=== PATIENT | male | born 1950 | race Caucasian/White ===

== ENCOUNTER 2016-11-22 10:18 | Emergency (ER) | payer MEDICARE, BC ==
[~2016-11-22] VITALS: Ht 170.2 cm; Wt 82.0 kg
[2016-11-22 10:23] VITALS: BP 177/92; PULSE 77; RESP 16; TEMP 98.4; O2SAT 98
[2016-11-22 10:40] VITALS: O2SAT 98
[2016-11-22 10:41] VITALS: BP 168/95; PULSE 72; RESP 16; O2SAT 98
[2016-11-22] MEDS ORDERED: SODIUM CHLORIDE 0.9% FLUSH 10 ML FLUSH IVF PRN (11:00)
--- NOTE | 2016-11-22 11:11 | PD ---
HPI Chief Complaint: Chest Pain Time Seen by Provider: 10:40 Travel History International Travel<30 days: No Contact w/Intl Traveler<30days: No Traveled to known affect area: No History of Present Illness HPI 66-year-old male presents with 7 AM this morning developing pain to the back of his head with associated right sided chest pressure and now discomfort to the left side of his neck. He states it feels worse whenever he takes a deep breath. He states he denies any fever, cough, congestion or other concurrent complaints. Quality is pressure. Severity is moderate. He denies other modifying factors. 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 He states that he's had 3 heart catheters before with the most recent in [place] about 2009 where he was given medications and had a blockage cleared but did not have a stent. He is concerned about his heart. PFSH Past Medical History Cardiovascular Problems: Yes (CARDIAC CATH X 3) Hypertension: Yes Past Surgical History Surgical History: No Previous Surgery Social History Alcohol Use: Yes Tobacco Use: No Substance Use: No Allergies-Medications (Allergen,Severity, Reaction): Coded Allergies: No Known Allergies (Unverified , 11/22/16) Reported Meds & Prescriptions Reported Meds & Active Scripts Active Reported Amlodipine (Amlodipine Besylate) 5 Mg Tab 5 Mg PO EVERY OTHER DAY Lisinopril 20 Mg Tab 20 Mg PO BID Zocor (Simvastatin) 80 Mg Tab 80 Mg PO DAILY Metoprolol Tartrate 50 Mg Tab 50 Mg PO BID Review of Systems Except as stated in HPI: all other systems reviewed are Neg Physical Exam Narrative GENERAL: Well-nourished, well-developed patient. SKIN: Warm and dry. HEAD: Normocephalic and atraumatic. EYES: No injection or drainage. ENT: No nasal drainage noted. NECK: Supple, trachea midline. CARDIOVASCULAR: Regular rate and rhythm RESPIRATORY: Breath sounds equal bilaterally. No accessory muscle use. GASTROINTESTINAL: Abdomen soft, non-tender, nondistended. EXTREMITIES: No edema. NEUROLOGICAL: Awake and alert. Motor and sensory grossly within normal limits. Normal speech. Data Data Last Documented VS Vital Signs Date Time Temp Pulse Resp B/P (MAP) Pulse Ox O2 Delivery O2 Flow Rate FiO2 11/22/16 15:33 65 16 116/76 (89) 98 Room Air 11/22/16 10:23 98.4 Orders Orders Electrocardiogram (11/22/16 10:51) Ckmb (Isoenzyme) Profile (11/22/16 10:51) Complete Blood Count With Diff (11/22/16 10:51) Comprehensive Metabolic Panel (11/22/16 10:51) D-Dimer (11/22/16 10:51) Magnesium (Mg) (11/22/16 10:51) Prothrombin Time / Inr (Pt) (11/22/16 10:51) Act Partial Throm Time (Ptt) (11/22/16 10:51) Troponin I (11/22/16 10:51) Chest, Single Ap (11/22/16 10:51) Ecg Monitoring (11/22/16 10:51) Bilateral Bp Monitoring (11/22/16 10:51) Iv Access Insert/Monitor (11/22/16 10:51) Oximetry (11/22/16 10:51) Sodium Chloride 0.9% Flush (Ns Flush) (11/22/16 11:00) Ct Brain W/O Iv Contrast(Rout) (11/22/16 ) CKMB (11/22/16 11:05) CKMB% (11/22/16 11:05) Aspirin (Aspirin) (11/22/16 14:30) Us Abdomen Gallbladder (11/22/16 14:22) Lipase (11/22/16 14:23) Urinalysis - C+S If Indicated (11/22/16 14:52) Sodium Chlorid 0.9% 500 Ml Inj (Ns 500 M (11/22/16 15:00) Troponin I (11/22/16 16:09) Labs Laboratory Tests Test 11/22/16 11:05 11/22/16 14:50 11/22/16 16:20 White Blood Count 12.9 TH/MM3 Red Blood Count 4.08 MIL/MM3 Hemoglobin 13.6 GM/DL Hematocrit 41.3 % Mean Corpuscular Volume 101.4 FL Mean Corpuscular Hemoglobin 33.4 PG Mean Corpuscular Hemoglobin Concent 33.0 % Red Cell Distribution Width 12.9 % Platelet Count 209 TH/MM3 Mean Platelet Volume 8.5 FL Neutrophils (%) (Auto) 79.7 % Lymphocytes (%) (Auto) 10.2 % Monocytes (%) (Auto) 6.5 % Eosinophils (%) (Auto) 3.0 % Basophils (%) (Auto) 0.6 % Neutrophils # (Auto) 10.3 TH/MM3 Lymphocytes # (Auto) 1.3 TH/MM3 Monocytes # (Auto) 0.8 TH/MM3 Eosinophils # (Auto) 0.4 TH/MM3 Basophils # (Auto) 0.1 TH/MM3 CBC Comment DIFF FINAL Differential Comment Prothrombin Time 10.8 SEC Prothromb Time International Ratio 1.0 RATIO Activated Partial Thromboplast Time 25.7 SEC D-Dimer Quantitative (PE/DVT) 0.27 MG/L FEU Blood Urea Nitrogen 9 MG/DL Creatinine 0.87 MG/DL Random Glucose 96 MG/DL Total Protein 7.1 GM/DL Albumin 3.5 GM/DL Calcium Level 8.4 MG/DL Magnesium Level 2.1 MG/DL Alkaline Phosphatase 49 U/L Aspartate Amino Transf (AST/SGOT) 24 U/L Alanine Aminotransferase (ALT/SGPT) 34 U/L Total Bilirubin 0.5 MG/DL Sodium Level 137 MEQ/L Potassium Level 3.7 MEQ/L Chloride Level 103 MEQ/L Carbon Dioxide Level 26.1 MEQ/L Anion Gap 8 MEQ/L Estimat Glomerular Filtration Rate 88 ML/MIN Total Creatine Kinase 102 U/L Creatine Kinase MB 1.4 NG/ML Troponin I LESS THAN 0.02 NG/ML LESS THAN 0.02 NG/ML Lipase 186 U/L Urine Color LIGHT-YELLOW Urine Turbidity CLEAR Urine pH 6.0 Urine Specific [place] 1.003 Urine Protein NEG mg/dL Urine Glucose (UA) NEG mg/dL Urine Ketones NEG mg/dL Urine Occult Blood NEG Urine Nitrite NEG Urine Bilirubin NEG Urine Urobilinogen LESS THAN 2.0 MG/DL Urine Leukocyte Esterase NEG Urine WBC 1 /hpf Microscopic Urinalysis Comment CULT NOT INDICATED MDM Medical Decision Making Medical Screen Exam Complete: Yes Emergency Medical Condition: Yes Medical Record Reviewed: Yes (past history confirmed) Interpretation(s) EKG is sinus rhythm at 70 without STEMI criteria CBC & BMP Diagram 11/22/16 11:05 Total Protein 7.1, Albumin 3.5, Calcium Level 8.4 L, Magnesium Level 2.1, Alkaline Phosphatase 49, Aspartate Amino Transf (AST/SGOT) 24, Alanine Aminotransferase (ALT/SGPT) 34, Total Bilirubin 0.5 Last 24 hours Impressions Chest X-Ray 11/22/16 1051 Signed Impressions: Service Date/Time: November 11:02 - CONCLUSION: 1. Minimal basilar atelectasis. No effusion or pneumothorax. Luis E Huggins MD Head CT 11/22/16 0000 Signed Impressions: Service Date/Time: November 14:00 - CONCLUSION: 1. No acute intracranial abnormalities. Luis E Huggins MD Last 24 hours Impressions Gall Bladder Ultrasound 11/22/16 1422 Signed Impressions: Service Date/Time: , November 22, 2016 14:32 - CONCLUSION: 1. Echogenic liver likely mild hepatic steatosis. 2. Gallbladder sludge without gallstones. 3. Echogenic focus right mid kidney likely nonobstructing calculus measuring 13 mm. Ifeanyi Vuong MD Chest X-Ray 11/22/16 1051 Signed Impressions: Service Date/Time: November 11:02 - CONCLUSION: 1. Minimal basilar atelectasis. No effusion or pneumothorax. Luis E Huggins MD Head CT 11/22/16 0000 Signed Impressions: Service Date/Time: November 14:00 - CONCLUSION: 1. No acute intracranial abnormalities. 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 He is in agreement to this plan Patient agrees to repeat troponin and discharge Patient denies any new complaints and states that they are feeling better. Patient happy with care, all questions answered. Patient knows that follow up is incumbent on them and to return to the emergency room immediately if new or worsening symptoms develop. Patient given strict return precautions, vitals reviewed and are normal, agrees to further workup as an outpatient. Physician Communication Physician Communication dr cote states had 2007 cath with mild to mod cad, and stress feb 2016 ok, states repeat troponin now and if ok can go and follow in office Diagnosis Primary Impression: Cephalalgia Qualified Codes: R51 - Headache Additional Impression: Chest pain Qualified Codes: R07.9 - Chest pain, unspecified Referrals: Morgan Cote MD call for appointment General Surgeon call for appointment Patient Instructions: General Instructions Additional Instructions: return as needed, tylenol as needed for pain Med/Other Pt SpecificInfo: No Change to Meds Disposition: 01 DISCHARGE HOME Condition: Stable Alia Worrell MD Nov 22, 2016 11:07
--- NOTE | 2016-11-22 11:22 | RADRPT ---
EXAM DATE/TIME: 11/22/2016 11:02 [facility] COMPARISON: No previous studies available for comparison. INDICATIONS : Chest pain MEDICAL HISTORY : Cardiovascular disease. Hypertension SURGICAL HISTORY : None. ENCOUNTER: Initial ACUITY: 1 day PAIN SCORE: 3/10 LOCATION: chest FINDINGS: A single view of the chest demonstrates mild basilar scarring or subsegmental atelectasis. No effusio n. Heart size upper limits normal. No pneumothorax. CONCLUSION: 1. Minimal basilar atelectasis. No effusion or pneumothorax. Luis E Huggins MD on November 22, 2016 at 11:19 Board Certified Radiologist. This report was verified electronically.
[2016-11-22 11:26] LABS: AUTOMATED NEUTROPHIL # 10.3 TH/MM3 (1.8-7.7); BASOPHIL # 0.1 TH/MM3 (0-0.2); BASOPHIL % 0.6 % (0.0-2.0); EOSINOPHIL # 0.4 TH/MM3 (0-0.4); HEMATOCRIT 41.3 % (39.0-51.0); HEMO FLAGS DIFF FINAL; LYMPH % 10.2 % (9.0-44.0); LYMPHOCYTE # 1.3 TH/MM3 (1.0-4.8); MEAN CELL VOLUME 101.4 FL (80.0-100.0); MEAN CORPUSCULAR HEMOGLOBIN 33.4 PG (27.0-34.0); MONO % 6.5 % (0.0-8.0); NEUT % 79.7 % (16.0-70.0); PLATELET COUNT 209 TH/MM3 (150-450); RED BLOOD COUNT 4.08 MIL/MM3 (4.50-5.90); RED CELL DISTRIBUTION WIDTH 12.9 % (11.6-17.2); WHITE BLOOD COUNT 12.9 TH/MM3 (4.0-11.0)
[2016-11-22 11:38] LABS: APTT (PATIENT) 25.7 SEC (24.3-30.1); PROTHROMBIN TIME - PATIENT 10.8 SEC (9.8-11.6)
[2016-11-22 11:43] LABS: ANION GAP 8 MEQ/L (5-15); AST (GOT) 24 U/L (15-37); BICARBONATE 26.1 MEQ/L (21.0-32.0); BLOOD UREA NITROGEN 9 MG/DL (7-18); CHLORIDE 103 MEQ/L (98-107); GLOMERULAR FILTRATION RATE 88 ML/MIN (>89); MAGNESIUM 2.1 MG/DL (1.5-2.5); POTASSIUM 3.7 MEQ/L (3.5-5.1); SODIUM (NA) 137 MEQ/L (136-145)
[2016-11-22 11:48] LABS: ALKALINE PHOSPHATASE 49 U/L (45-117); ALT (GPT) 34 U/L (12-78); CREATINE KINASE 102 U/L (39-308); TOTAL BILIRUBIN ADULT 0.5 MG/DL (0.2-1.0)
[2016-11-22 12:00] LABS: CKMB 1.4 NG/ML (0.5-3.6)
[2016-11-22 13:28] VITALS: BP 133/83; PULSE 67; RESP 16; O2SAT 97
--- NOTE | 2016-11-22 13:55 | EKG ---
Date Performed: 11/22/2016 Time Performed: 10:40:24 PTAGE: 66 years EKG: Sinus rhythm RIGHT BUNDLE BRANCH BLOCK ABNORMAL ECG NO PREVIOUS TRACING DOCTOR: Ashwin Blunt Interpretating Date/Time 11/22/2016 13:53:53
--- NOTE | 2016-11-22 14:17 | RADRPT ---
EXAM DATE/TIME: 11/22/2016 14:00 [facility] COMPARISON: No previous studies available for comparison. INDICATIONS : Headache. RADIATION DOSE: 35.93 CTDIvol (mGy) MEDICAL HISTORY : Hypertension. SURGICAL HISTORY : None. ENCOUNTER: Initial ACUITY: 1 day PAIN SCALE: 5/10 LOCATION: Bilateral frontal TECHNIQUE: Multiple contiguous axial images were obtained of the head. Using automated exposure control and adj ustment of the mA and/or kV according to patient size, radiation dose was kept as low as reasonably a chievable to obtain optimal diagnostic quality images. DICOM format image data is available electro nically for review and comparison. FINDINGS: CEREBRUM: The ventricles are normal for age. No evidence of midline shift, mass lesion, hemorrhage or acute in farction. No extra-axial fluid collections are seen. POSTERIOR FOSSA: The cerebellum and brainstem are intact. The 4th ventricle is midline. The cerebellopontine angle i s unremarkable. EXTRACRANIAL: The visualized portion of the orbits is intact. SKULL: The calvaria is intact. No evidence of skull fracture. CONCLUSION: 1. No acute intracranial abnormalities. Luis E Huggins MD on November 22, 2016 at 14:14 Board Certified Radiologist. This report was verified electronically.
[2016-11-22] MEDS ORDERED: ASPIRIN 325 MG TAB PO ONE (14:30)
[2016-11-22] MEDS ORDERED: SODIUM CHLORID 0.9% 500 ML INJ 500 ML IV ONE (15:00)
--- NOTE | 2016-11-22 15:01 | RADRPT ---
EXAM DATE/TIME: 11/22/2016 14:32 [facility] COMPARISON: No previous studies available for comparison. INDICATIONS : Right upper quadrant pain. MEDICAL HISTORY : Hypertension. SURGICAL HISTORY : Cardiac catheterization. ENCOUNTER: Initial ACUITY: 1 day PAIN SCORE: 3/10 LOCATION: Right upper quadrant MEASUREMENTS: LIVER: 16.9 cm length COMMON DUCT: 3 mm RIGHT KIDNEY: 10.6 x 6.2 x 7.0 cm FINDINGS: LIVER: Diffuse echogenic without focal lesion or ductal dilatation. Hepatopedal flow. COMMON DUCT: No intraluminal mass or stone visualized. GALLBLADDER: Gallbladder sludge. Contains no stones, demonstrates no wall thickening or pericholecystic fluid. PANCREAS: The visualized portions are within normal limits. RIGHT KIDNEY: No evidence of hydronephrosis or mass. Echogenic lesion measures 13 mm. CONCLUSION: 1. Echogenic liver likely mild hepatic steatosis. 2. Gallbladder sludge without gallstones. 3. Echogenic focus right mid kidney likely nonobstructing calculus measuring 13 mm. Ifeanyi Vuong MD on November 22, 2016 at 14:58 Board Certified Radiologist. This report was verified electronically.
[2016-11-22 15:33] VITALS: BP 116/76; PULSE 65; RESP 16; O2SAT 98
[2016-11-22 15:40] LABS: BLOOD, URINE NEG (NEG); GLUCOSE,URINE NEG (NEG); KETONE, URINE NEG (NEG); NITRITE,URINE NEG (NEG); URINE COLOR LIGHT-YELLOW (YELLW/STRAW)
[2016-11-22 15:41] LABS: COMMENT (UR) CULT NOT INDICATED; CULTURE IF INDICATED CULT NOT INDICATED
[2016-11-22] MEDS ORDERED: AMLO5TAB2 PO (17:23)
[2016-11-22] MEDS ORDERED: METO50TA PO (17:23)
[2016-11-22] MEDS ORDERED: ZOCO80TA PO (17:23)
[2016-11-22] MEDS ORDERED: LISI-515 PO (17:23)
[2016-11-22 18:27] VITALS: BP 134/63; PULSE 72; RESP 16; O2SAT 98
== END 2016-11-22 18:30 | disposition home or self-care (01) ==
LOC: NEPC 10:18
DX: R51 Headache (principal); R07.9 Chest pain, unspecified; I45.10 Unspecified right bundle-branch block; I10 Essential (primary) hypertension
CPT/HCPCS: 70450; 71010; 76705; 80053; 81001; 82550; 82552; 83690; 83735; 84484; 85025; 85379; 85610; 85730; 93005; 99285; J7040